=== PATIENT | female | born 1990 | race Caucasian/White ===

== ENCOUNTER 2020-04-26 18:56 | Emergency (ER) | payer OTHER ==
[~2020-04-26] VITALS: Ht 167.6 cm; Wt 77.1 kg
[2020-04-26] MEDS ORDERED: ERYTHROMYCIN E3.5 G2 OPHTHALMIC (19:17)
[2020-04-26 19:41] VITALS: BP 131/85
== END 2020-04-26 19:37 | disposition home or self-care (01) ==
LOC: ER 18:56
DX: S05.02XA Injury of conjunctiva and corneal abrasion without foreign body, left eye, initial encounter (principal); H10.9 Unspecified conjunctivitis; X58.XXXA Exposure to other specified factors, initial encounter; Y93.89 Activity, other specified; Y92.89 Other specified places as the place of occurrence of the external cause; Y99.8 Other external cause status